=== PATIENT | male | born 1970 | race Caucasian/White ===

== ENCOUNTER → 2021-04-15 | Day surgery (SDC) | payer OTHER ==
[~2021-04-15] MED LIST: ASPIRIN EC325 MG PO; CHILD LITTLE A1 EACH PO; CLARITIN10 M1 PO; COREG 25MG TAB25 MG PO; FEROSUL325 MG PO; FISH OIL 1,2001 EAC2 PO; IBU600 MG PO; LANTUS SOL100 UNIT/1 SQ; LOVASTATIN40 MG PO; METFORMIN HCL1000 MG PO; TRAZODONE HCL100 MG PO; VALSARTAN-HCTZ1 EACH PO
== END | disposition home or self-care (01) ==
LOC: OR 07:13
DX: K31.9 Disease of stomach and duodenum, unspecified (principal); K29.60 Other gastritis without bleeding; K25.9 Gastric ulcer, unspecified as acute or chronic, without hemorrhage or perforation; K74.69 Other cirrhosis of liver; K75.81 Nonalcoholic steatohepatitis (NASH); R76.8 Other specified abnormal immunological findings in serum; E66.01 Morbid (severe) obesity due to excess calories; I10 Essential (primary) hypertension; E11.9 Type 2 diabetes mellitus without complications; Z88.8 Allergy status to other drugs, medicaments and biological substances; Z87.891 Personal history of nicotine dependence; Z79.82 Long term (current) use of aspirin; Z20.822 Contact with and (suspected) exposure to COVID-19
CPT/HCPCS: 82962; J2704; J7040